=== PATIENT | female | born 1950 | race Two or more races ===

== ENCOUNTER 2018-07-04 18:25 | Inpatient (IN) | payer BC ==
[2018-07-04] MEDS ORDERED: morphine 2 MG INJ IV (19:00)
[2018-07-04] MEDS ORDERED: DOCUSATE SODIUM 100 MG CAP PO (19:00)
[2018-07-04] MEDS ORDERED: ONDANSETRON 4 MG INJ IV (19:00)
[2018-07-04] MEDS ORDERED: ACETAMINOPHEN 325 MG TAB PO (19:00)
[2018-07-04] MEDS ORDERED: GLUCOSE GEL 15 GRAM TUBE PO ×2 (19:00)
[2018-07-04] MEDS ORDERED: GLUCOSE GEL 15 GRAM TUBE BUCCAL (19:00)
[2018-07-04] MEDS ORDERED: NACL 0.9% 3 ML SYG IV (19:00)
[2018-07-04] MEDS ORDERED: HYDROCODONE/APAP (5/325) TAB PO (19:00)
[2018-07-04] MEDS ORDERED: GLUCAGON 1 MG INJ IM (19:00)
[2018-07-04] MEDS ORDERED: ZOLPIDEM 5 MG TAB PO (19:00)
[2018-07-04] MEDS ORDERED: DEXTROSE 50% 50 ML SYRINGE IV ×2 (19:00)
[2018-07-04] MEDS ORDERED: AZITHROMYCIN 500MG/NS (PMX) 250 ML IVPB (20:00)
[2018-07-04 20:05] LABS: ADD MAN DIFF? NO
[2018-07-04 20:10] LABS: WHITE BLOOD COUNT 6.7 10^3/ul (4.8-10.8)
[2018-07-04 20:10] LABS: ABNORMAL IP MESSAGE 1; BASOPHILS % 0.1 % (0.0-2.0); HEMATOCRIT 37.2 % (37.0-47.0); HEMOGLOBIN 11.5 g/dl (12.0-16.0); LYMPHOCYTES # 0.6 10^3/ul (0.8-2.9); LYMPHOCYTES % 8.5 % (15.0-51.0); MEAN CORPUSCULAR HEMOGLOBIN 25.2 pg (29.0-33.0); MEAN CORPUSCULAR HGB CONC 30.9 g/dl (32.0-37.0); MEAN CORPUSCULAR VOLUME 81.6 fl (82.0-101.0); MEAN PLATELET VOLUME 13.2 fl (7.4-10.4); MONOCYTE # 0.3 10^3/ul (0.3-0.9); MONOCYTES % 3.7 % (0.0-11.0); NEUTROPHIL # 5.9 10^3/ul (1.6-7.5); NEUTROPHILS % 87.4 % (39.0-77.0); PLATELET COUNT 135 10^3/UL (140-415); RED BLOOD COUNT 4.56 10^6/ul (4.20-5.40)
[2018-07-04 20:11] LABS: POSITIVE DIFF @See below
[2018-07-04] MEDS: CEFTRIAXONE 1 GM/50 ML (PMX) 50 ML IVPB (20:19)
[2018-07-04 20:37] LABS: ALANINE AMINOTRANSFERASE 38 IU/L (13-69); ALBUMIN 3.4 g/dl (3.3-4.9); ALBUMIN/GLOBULIN RATIO 0.87; ALKALINE PHOSPHATASE 103 IU/L (42-121); ANION GAP 6 (5-13); ASPARTATE AMINO TRANSFERASE 36 IU/L (15-46); BILIRUBIN,INDIRECT 0.4 mg/dl (0-1.1); BILIRUBIN,TOTAL 0.4 mg/dl (0.2-1.3); BLOOD UREA NITROGEN 15 mg/dl (7-20); CALCIUM 9.3 mg/dl (8.4-10.2); CARBON DIOXIDE 30 mmol/L (21-31); CHLORIDE 102 mmol/L (97-110); CREATININE 0.39 mg/dl (0.44-1.00); Estimated GFR > 60 mL/min (>60); GLUCOSE 153 mg/dl (70-220); SODIUM 138 mmol/L (135-144); TOTAL PROTEIN 7.3 g/dl (6.1-8.1)
[2018-07-04] MEDS: INSULIN ASPART [NOVOLOG] 3 ML PEN SC (21:00)
[2018-07-04] MEDS: NIFEdipine (XL) 30 MG TAB PO (21:28)
[2018-07-04] MEDS: MONTELUKAST 10 MG TAB PO (21:28)
[2018-07-04] MEDS: METHYLPREDNISOLONE 40 MG INJ IV (22:06)
[2018-07-04 22:25] LABS: BAND NEUTROPHILS #M 0.8 10^3/ul (0.0-0.6); BAND NEUTROPHILS % (M) 13 % (0-4); EOSINOPHILS % (M) 1 % (0-7); LYMPHOCYTES #M 0.6 10^3/ul (0.8-2.9); LYMPHOCYTES % (M) 10 % (15-51); METAMYELOCYTES %M 1 % (0-0); MONOCYTE #M 0.1 10^3/ul (0.3-0.9); MONOCYTES % (M) 2 % (0-11); PLATELET ESTIMATE DECREASED; SEG NEUT #M 4.9 10^3/ul (1.6-7.5); SEGMENTED NEUTROPHILS (M) % 73 % (39-77); SMUDGE%M 18 % (0-0)
[2018-07-04] MEDS: AZITHROMYCIN 500MG/NS (PMX) 250 ML IVPB (22:53)
[2018-07-05] MEDS: ACCU-CHEK XX (02:00)
[2018-07-05 06:08] LABS: ADD MAN DIFF? NO
[2018-07-05 06:11] LABS: WHITE BLOOD COUNT 6.9 10^3/ul (4.8-10.8)
[2018-07-05 06:11] LABS: ABNORMAL IP MESSAGE 1; BASOPHILS % 0.1 % (0.0-2.0); HEMATOCRIT 36.3 % (37.0-47.0); LYMPHOCYTES # 0.6 10^3/ul (0.8-2.9); LYMPHOCYTES % 8.8 % (15.0-51.0); MEAN CORPUSCULAR HGB CONC 30.3 g/dl (32.0-37.0); MEAN CORPUSCULAR VOLUME 82.5 fl (82.0-101.0); MEAN PLATELET VOLUME 13.6 fl (7.4-10.4); MONOCYTE # 0.3 10^3/ul (0.3-0.9); NEUTROPHILS % 86.5 % (39.0-77.0); PLATELET COUNT 116 10^3/UL (140-415); RED CELL DISTRIBUTION WIDTH 14.1 % (11.5-14.5)
[2018-07-05] MEDS: PANTOPRAZOLE (EC) 40 MG TAB PO (06:15)
[2018-07-05] MEDS: METHYLPREDNISOLONE 40 MG INJ IV ×3 (06:15→21:33)
[2018-07-05 06:23] LABS: POSITIVE DIFF @See below
[2018-07-05] MEDS ORDERED: LEVOFLOXACIN 750MG/D5W (PMX) 150 ML IVPB (06:30)
[2018-07-05 06:39] LABS: HEMOGLOBIN A1C 5.7 % (0-5.9)
[2018-07-05 07:09] LABS: ANION GAP 5 (5-13); BLOOD UREA NITROGEN 19 mg/dl (7-20); CALCIUM 8.8 mg/dl (8.4-10.2); CARBON DIOXIDE 31 mmol/L (21-31); CHLORIDE 103 mmol/L (97-110); CREATININE 0.41 mg/dl (0.44-1.00); Estimated GFR > 60 mL/min (>60); GLUCOSE 209 mg/dl (70-220); SODIUM 139 mmol/L (135-144)
[2018-07-05 07:40] LABS: POTASSIUM 5.6 mmol/L (3.5-5.1)
[2018-07-05] MEDS: NIFEdipine (XL) 30 MG TAB PO ×2 (08:09→21:33)
[2018-07-05] MEDS: MAGNESIUM OXIDE 400 MG TAB PO (08:09)
[2018-07-05] MEDS: TIOTROPIUM 18 MCG CAPSULE INHA DEV INH (08:12)
[2018-07-05] MEDS: INSULIN ASPART [NOVOLOG] 3 ML PEN SC ×7 (08:14→21:00)
[2018-07-05] MEDS: INSULIN GLARGINE [LANTus] (100 UNITS/ML) SYG SC (08:15)
[2018-07-05] MEDS: ENOXAPARIN 40 MG/0.4 ML SYG SC ×2 (08:15→09:00)
[2018-07-05] MEDS ORDERED: ARFORMOTEROL TARTRATE 15MCG/2 ML AMP INH (09:00)
[2018-07-05] MEDS: ASPIRIN 81 MG TAB PO (09:00)
[2018-07-05] MEDS ORDERED: NON-FORMULARY/PATIENT OWN MED (Salmeterol Xinaf-Fluticasone* (Advair*) 1 INH) INHALATION (09:00)
[2018-07-05] MEDS: BUDESONIDE (NEB) 0.5MG/2ML AMP INH ×2 (09:17→21:11)
[2018-07-05] MEDS: NA POLYST SULFON 15 GM/60 ML BTL PO ×2 (09:30→10:26)
[2018-07-05] MEDS ORDERED: metFORMIN 500 MG TAB PO (12:00)
[2018-07-05] MEDS: ALBUTEROL/IPRATROPIUM (NEB) 3 ML AMP HHN ×2 (14:27→21:11)
[2018-07-05] MEDS: CEFTRIAXONE 1 GM/50 ML (PMX) 50 ML IVPB (18:11)
[2018-07-05] MEDS: AZITHROMYCIN 500MG/NS (PMX) 250 ML IVPB (21:33)
[2018-07-05] MEDS: MONTELUKAST 10 MG TAB PO (21:33)
[2018-07-06] MEDS: ACCU-CHEK XX (01:22)
[2018-07-06] MEDS: METHYLPREDNISOLONE 40 MG INJ IV ×3 (05:19→21:15)
[2018-07-06] MEDS: PANTOPRAZOLE (EC) 40 MG TAB PO (05:19)
[2018-07-06 06:19] LABS: ADD MAN DIFF? NO
[2018-07-06 06:33] LABS: ABNORMAL IP MESSAGE 1; HEMATOCRIT 37.8 % (37.0-47.0); HEMOGLOBIN 11.3 g/dl (12.0-16.0); LYMPHOCYTES # 0.6 10^3/ul (0.8-2.9); LYMPHOCYTES % 8.9 % (15.0-51.0); MEAN CORPUSCULAR HEMOGLOBIN 24.9 pg (29.0-33.0); MEAN CORPUSCULAR HGB CONC 29.9 g/dl (32.0-37.0); MEAN CORPUSCULAR VOLUME 83.3 fl (82.0-101.0); MEAN PLATELET VOLUME 12.9 fl (7.4-10.4); MONOCYTE # 0.3 10^3/ul (0.3-0.9); MONOCYTES % 4.2 % (0.0-11.0); NEUTROPHIL # 6.1 10^3/ul (1.6-7.5); NEUTROPHILS % 86.3 % (39.0-77.0); PLATELET COUNT 127 10^3/UL (140-415); RED BLOOD COUNT 4.54 10^6/ul (4.20-5.40); RED CELL DISTRIBUTION WIDTH 14.3 % (11.5-14.5)
[2018-07-06 06:33] LABS: WHITE BLOOD COUNT 7.1 10^3/ul (4.8-10.8)
[2018-07-06 06:45] LABS: LACTIC ACID 1.4 mmol/L (0.5-2.0)
[2018-07-06 06:47] LABS: POSITIVE DIFF @See below
[2018-07-06 07:04] LABS: ANION GAP 4 (5-13); BLOOD UREA NITROGEN 22 mg/dl (7-20); CALCIUM 9.2 mg/dl (8.4-10.2); CARBON DIOXIDE 34 mmol/L (21-31); CHLORIDE 101 mmol/L (97-110); Estimated GFR > 60 mL/min (>60); GLUCOSE 190 mg/dl (70-220); PHOSPHORUS 3.9 mg/dl (2.5-4.9); POTASSIUM 4.7 mmol/L (3.5-5.1); SODIUM 139 mmol/L (135-144)
[2018-07-06] MEDS: NIFEdipine (XL) 30 MG TAB PO ×2 (08:23→20:58)
[2018-07-06] MEDS: ASPIRIN 81 MG TAB PO (08:23)
[2018-07-06] MEDS: MAGNESIUM OXIDE 400 MG TAB PO (08:23)
[2018-07-06] MEDS: ENOXAPARIN 40 MG/0.4 ML SYG SC (08:32)
[2018-07-06] MEDS: INSULIN ASPART [NOVOLOG] 3 ML PEN SC ×7 (08:33→21:07)
[2018-07-06] MEDS: INSULIN GLARGINE [LANTus] (100 UNITS/ML) SYG SC (08:33)
[2018-07-06] MEDS: BUDESONIDE (NEB) 0.5MG/2ML AMP INH ×2 (08:38→21:25)
[2018-07-06] MEDS: ALBUTEROL/IPRATROPIUM (NEB) 3 ML AMP HHN ×4 (08:38→21:21)
[2018-07-06] MEDS: CEFTRIAXONE 1 GM/50 ML (PMX) 50 ML IVPB (17:42)
[2018-07-06] MEDS: MONTELUKAST 10 MG TAB PO (20:58)
[2018-07-06] MEDS: AZITHROMYCIN 500MG/NS (PMX) 250 ML IVPB (21:15)
[2018-07-07] MEDS: ALBUTEROL/IPRATROPIUM (NEB) 3 ML AMP HHN ×6 (01:00→21:08)
[2018-07-07] MEDS: ACCU-CHEK XX (02:00)
[2018-07-07] MEDS: PANTOPRAZOLE (EC) 40 MG TAB PO (05:37)
[2018-07-07] MEDS: METHYLPREDNISOLONE 40 MG INJ IV ×3 (05:37→21:30)
[2018-07-07 07:14] LABS: ADD MAN DIFF? NO
[2018-07-07 07:20] LABS: ABNORMAL IP MESSAGE 1; BASOPHILS % 0.2 % (0.0-2.0); HEMATOCRIT 38.2 % (37.0-47.0); HEMOGLOBIN 11.4 g/dl (12.0-16.0); LYMPHOCYTES # 0.6 10^3/ul (0.8-2.9); LYMPHOCYTES % 11.6 % (15.0-51.0); MEAN CORPUSCULAR HEMOGLOBIN 25.1 pg (29.0-33.0); MEAN CORPUSCULAR HGB CONC 29.8 g/dl (32.0-37.0); MEAN CORPUSCULAR VOLUME 84.1 fl (82.0-101.0); MEAN PLATELET VOLUME 13.2 fl (7.4-10.4); MONOCYTE # 0.4 10^3/ul (0.3-0.9); MONOCYTES % 6.8 % (0.0-11.0); NEUTROPHIL # 4.4 10^3/ul (1.6-7.5); NEUTROPHILS % 80.7 % (39.0-77.0); PLATELET COUNT 112 10^3/UL (140-415); RED BLOOD COUNT 4.54 10^6/ul (4.20-5.40); RED CELL DISTRIBUTION WIDTH 14.3 % (11.5-14.5)
[2018-07-07 07:20] LABS: WHITE BLOOD COUNT 5.4 10^3/ul (4.8-10.8)
[2018-07-07 07:22] LABS: POSITIVE DIFF @See below
[2018-07-07 07:42] LABS: ANION GAP 8 (5-13); BLOOD UREA NITROGEN 25 mg/dl (7-20); CARBON DIOXIDE 31 mmol/L (21-31); CHLORIDE 100 mmol/L (97-110); CREATININE 0.44 mg/dl (0.44-1.00); Estimated GFR > 60 mL/min (>60); GLUCOSE 236 mg/dl (70-220); MAGNESIUM 1.8 mg/dl (1.7-2.5); PHOSPHORUS 3.7 mg/dl (2.5-4.9); POTASSIUM 4.7 mmol/L (3.5-5.1); SODIUM 139 mmol/L (135-144)
[2018-07-07] MEDS: MAGNESIUM OXIDE 400 MG TAB PO (08:20)
[2018-07-07] MEDS: ASPIRIN 81 MG TAB PO (08:20)
[2018-07-07] MEDS: INSULIN ASPART [NOVOLOG] 3 ML PEN SC ×7 (08:26→21:00)
[2018-07-07] MEDS: ENOXAPARIN 40 MG/0.4 ML SYG SC (08:27)
[2018-07-07] MEDS: INSULIN GLARGINE [LANTus] (100 UNITS/ML) SYG SC (08:27)
[2018-07-07] MEDS: NIFEdipine (XL) 30 MG TAB PO ×2 (08:28→21:35)
[2018-07-07] MEDS: BUDESONIDE (NEB) 0.5MG/2ML AMP INH ×2 (08:38→21:08)
[2018-07-07 12:57] LABS: AADO2 Arterial 30.8 mmHg (7.0-24.0); Allen Test ACCEPTAB; Arterial Base Excess 5.4 mmol/L (-3.0-3); Arterial Blood Gas Oxygen Sat 92.1 mmHG (95.0-98.0); Arterial COHb 0.2 % (0.0-3.0); Arterial Fraction of Oxyhgb 91.8 % (93.0-99.0); Arterial HCO3 30.9 mmol/L (22.0-26.0); Arterial MetHb 0.1 % (0.0-1.5); Arterial pCO2 48.6 mmhg (35-45); MODE ROOM AIR; Site Right Radial
[2018-07-07] MEDS: CEFTRIAXONE 1 GM/50 ML (PMX) 50 ML IVPB (18:37)
[2018-07-07] MEDS: MONTELUKAST 10 MG TAB PO (21:30)
[2018-07-07] MEDS: AZITHROMYCIN 500MG/NS (PMX) 250 ML IVPB (21:42)
[2018-07-08] MEDS: ALBUTEROL/IPRATROPIUM (NEB) 3 ML AMP HHN ×5 (01:00→20:45)
[2018-07-08] MEDS: ACCU-CHEK XX (02:00)
[2018-07-08] MEDS: PANTOPRAZOLE (EC) 40 MG TAB PO (05:04)
[2018-07-08] MEDS: METHYLPREDNISOLONE 40 MG INJ IV ×2 (05:04→21:32)
[2018-07-08 05:54] LABS: ABNORMAL IP MESSAGE 1; ADD MAN DIFF? NO; HEMOGLOBIN 11.5 g/dl (12.0-16.0); LYMPHOCYTES # 0.6 10^3/ul (0.8-2.9); LYMPHOCYTES % 11.6 % (15.0-51.0); MEAN CORPUSCULAR HEMOGLOBIN 25.1 pg (29.0-33.0); MEAN CORPUSCULAR HGB CONC 30.3 g/dl (32.0-37.0); MEAN PLATELET VOLUME 12.3 fl (7.4-10.4); MONOCYTE # 0.3 10^3/ul (0.3-0.9); NEUTROPHIL # 4.1 10^3/ul (1.6-7.5); NEUTROPHILS % 81.6 % (39.0-77.0); PLATELET COUNT 106 10^3/UL (140-415); RED BLOOD COUNT 4.58 10^6/ul (4.20-5.40); RED CELL DISTRIBUTION WIDTH 14.1 % (11.5-14.5)
[2018-07-08 06:15] LABS: POSITIVE DIFF @See below
[2018-07-08 06:35] LABS: ALBUMIN 3.1 g/dl (3.3-4.9); ANION GAP 7 (5-13); BLOOD UREA NITROGEN 23 mg/dl (7-20); CALCIUM 8.9 mg/dl (8.4-10.2); CARBON DIOXIDE 32 mmol/L (21-31); CHLORIDE 101 mmol/L (97-110); GLUCOSE 178 mg/dl (70-220); PHOSPHORUS 3.6 mg/dl (2.5-4.9); POTASSIUM 4.9 mmol/L (3.5-5.1); SODIUM 140 mmol/L (135-144)
[2018-07-08] MEDS: ASPIRIN 81 MG TAB PO (08:32)
[2018-07-08] MEDS: NIFEdipine (XL) 30 MG TAB PO ×2 (08:33→21:35)
[2018-07-08] MEDS: MAGNESIUM OXIDE 400 MG TAB PO (08:33)
[2018-07-08] MEDS: INSULIN ASPART [NOVOLOG] 3 ML PEN SC ×7 (08:37→21:00)
[2018-07-08] MEDS: INSULIN GLARGINE [LANTus] (100 UNITS/ML) SYG SC (08:38)
[2018-07-08] MEDS: ENOXAPARIN 40 MG/0.4 ML SYG SC (08:39)
[2018-07-08] MEDS: BUDESONIDE (NEB) 0.5MG/2ML AMP INH ×2 (08:58→20:45)
[2018-07-08 12:59] LABS: ALANINE AMINOTRANSFERASE 42 IU/L (13-69); ALBUMIN 3.5 g/dl (3.3-4.9); ALKALINE PHOSPHATASE 81 IU/L (42-121); ASPARTATE AMINO TRANSFERASE 33 IU/L (15-46); BILIRUBIN,INDIRECT 0.4 mg/dl (0-1.1); BILIRUBIN,TOTAL 0.4 mg/dl (0.2-1.3); TOTAL PROTEIN 6.8 g/dl (6.1-8.1)
[2018-07-08] MEDS: CEFTRIAXONE 1 GM/50 ML (PMX) 50 ML IVPB (17:36)
[2018-07-08] MEDS: MONTELUKAST 10 MG TAB PO (21:33)
[2018-07-08] MEDS: AZITHROMYCIN 500MG/NS (PMX) 250 ML IVPB (23:32)
[2018-07-09] MEDS: ALBUTEROL/IPRATROPIUM (NEB) 3 ML AMP HHN ×6 (01:00→19:23)
[2018-07-09] MEDS: ACCU-CHEK XX (02:00)
[2018-07-09] MEDS: PANTOPRAZOLE (EC) 40 MG TAB PO (05:47)
[2018-07-09] MEDS: BUDESONIDE (NEB) 0.5MG/2ML AMP INH ×2 (08:42→19:22)
[2018-07-09] MEDS: INSULIN ASPART [NOVOLOG] 3 ML PEN SC ×7 (08:53→20:54)
[2018-07-09] MEDS: INSULIN GLARGINE [LANTus] (100 UNITS/ML) SYG SC (08:54)
[2018-07-09] MEDS: MAGNESIUM OXIDE 400 MG TAB PO (09:10)
[2018-07-09] MEDS: ASPIRIN 81 MG TAB PO (09:11)
[2018-07-09] MEDS: ENOXAPARIN 40 MG/0.4 ML SYG SC (09:12)
[2018-07-09] MEDS: NIFEdipine (XL) 30 MG TAB PO ×2 (09:13→20:46)
[2018-07-09] MEDS: METHYLPREDNISOLONE 40 MG INJ IV ×2 (09:45→20:46)
[2018-07-09] MEDS ORDERED: morphine LIQ (10 MG/5 ML) CUP PO (15:30)
[2018-07-09] MEDS: CEFTRIAXONE 1 GM/50 ML (PMX) 50 ML IVPB (18:30)
[2018-07-09] MEDS: MONTELUKAST 10 MG TAB PO (20:46)
[2018-07-09] MEDS: AZITHROMYCIN 500MG/NS (PMX) 250 ML IVPB (23:25)
[2018-07-10] MEDS: ALBUTEROL/IPRATROPIUM (NEB) 3 ML AMP HHN ×6 (00:32→21:29)
[2018-07-10] MEDS: ACCU-CHEK XX (01:56)
[2018-07-10] MEDS: PANTOPRAZOLE (EC) 40 MG TAB PO (05:56)
[2018-07-10] MEDS: MAGNESIUM OXIDE 400 MG TAB PO (08:24)
[2018-07-10] MEDS: NIFEdipine (XL) 30 MG TAB PO ×2 (08:24→20:38)
[2018-07-10] MEDS: predniSONE 20 MG TAB PO (08:24)
[2018-07-10] MEDS: INSULIN ASPART [NOVOLOG] 3 ML PEN SC ×7 (08:26→20:38)
[2018-07-10] MEDS: INSULIN GLARGINE [LANTus] (100 UNITS/ML) SYG SC (08:27)
[2018-07-10] MEDS: ENOXAPARIN 40 MG/0.4 ML SYG SC (08:28)
[2018-07-10] MEDS: ASPIRIN 81 MG TAB PO (08:31)
[2018-07-10] MEDS: BUDESONIDE (NEB) 0.5MG/2ML AMP INH ×2 (09:10→21:29)
[2018-07-10] MEDS: POLYETHYLENE GLYCOL 17 GM PACKET PO (13:43)
[2018-07-10] MEDS: CEFTRIAXONE 1 GM/50 ML (PMX) 50 ML IVPB (18:26)
[2018-07-10] MEDS: MONTELUKAST 10 MG TAB PO (20:38)
[2018-07-11] MEDS: ALBUTEROL/IPRATROPIUM (NEB) 3 ML AMP HHN ×6 (01:02→20:48)
[2018-07-11] MEDS: ACCU-CHEK XX (01:57)
[2018-07-11] MEDS: PANTOPRAZOLE (EC) 40 MG TAB PO (05:23)
[2018-07-11] MEDS: INSULIN ASPART [NOVOLOG] 3 ML PEN SC ×7 (08:00→21:00)
[2018-07-11] MEDS: BUDESONIDE (NEB) 0.5MG/2ML AMP INH ×2 (08:07→20:48)
[2018-07-11] MEDS: ASPIRIN 81 MG TAB PO (08:36)
[2018-07-11] MEDS: NIFEdipine (XL) 30 MG TAB PO ×2 (08:38→21:22)
[2018-07-11] MEDS: POLYETHYLENE GLYCOL 17 GM PACKET PO (08:38)
[2018-07-11] MEDS: MAGNESIUM OXIDE 400 MG TAB PO (08:38)
[2018-07-11] MEDS: predniSONE 20 MG TAB PO (08:38)
[2018-07-11] MEDS: INSULIN GLARGINE [LANTus] (100 UNITS/ML) SYG SC (08:42)
[2018-07-11] MEDS: ENOXAPARIN 40 MG/0.4 ML SYG SC (08:42)
[2018-07-11] MEDS: CEFTRIAXONE 1 GM/50 ML (PMX) 50 ML IVPB (18:40)
[2018-07-11] MEDS: MONTELUKAST 10 MG TAB PO (21:22)
[2018-07-12] MEDS: ALBUTEROL/IPRATROPIUM (NEB) 3 ML AMP HHN ×6 (01:00→20:55)
[2018-07-12] MEDS: ACCU-CHEK XX (02:00)
[2018-07-12] MEDS: PANTOPRAZOLE (EC) 40 MG TAB PO (05:47)
[2018-07-12] MEDS: DOCUSATE SODIUM 100 MG CAP PO (05:47)
[2018-07-12] MEDS: INSULIN ASPART [NOVOLOG] 3 ML PEN SC ×7 (08:00→20:48)
[2018-07-12] MEDS: INSULIN GLARGINE [LANTus] (100 UNITS/ML) SYG SC (08:11)
[2018-07-12] MEDS: BUDESONIDE (NEB) 0.5MG/2ML AMP INH ×2 (08:42→20:55)
[2018-07-12] MEDS: ASPIRIN 81 MG TAB PO (09:00)
[2018-07-12] MEDS: predniSONE 20 MG TAB PO (09:03)
[2018-07-12] MEDS: MAGNESIUM OXIDE 400 MG TAB PO (09:03)
[2018-07-12] MEDS: NIFEdipine (XL) 30 MG TAB PO ×2 (09:07→20:45)
[2018-07-12] MEDS: POLYETHYLENE GLYCOL 17 GM PACKET PO (09:08)
[2018-07-12] MEDS: ENOXAPARIN 40 MG/0.4 ML SYG SC (09:57)
[2018-07-12] MEDS: CEFTRIAXONE 1 GM/50 ML (PMX) 50 ML IVPB (18:26)
[2018-07-12] MEDS: MONTELUKAST 10 MG TAB PO (20:44)
[2018-07-12] MEDS: traZODone 50 MG TAB PO (21:00)
[2018-07-13] MEDS: ALBUTEROL/IPRATROPIUM (NEB) 3 ML AMP HHN ×4 (01:01→22:18)
[2018-07-13] MEDS: ACCU-CHEK XX ×2 (02:28→20:46)
[2018-07-13] MEDS: PANTOPRAZOLE (EC) 40 MG TAB PO (05:51)
[2018-07-13] MEDS: INSULIN ASPART [NOVOLOG] 3 ML PEN SC ×7 (08:00→20:46)
[2018-07-13] MEDS: BUDESONIDE (NEB) 0.5MG/2ML AMP INH ×2 (08:00→22:13)
[2018-07-13] MEDS: predniSONE 20 MG TAB PO (08:14)
[2018-07-13] MEDS: ASPIRIN 81 MG TAB PO (08:15)
[2018-07-13] MEDS: NIFEdipine (XL) 30 MG TAB PO ×2 (08:15→20:45)
[2018-07-13] MEDS: MAGNESIUM OXIDE 400 MG TAB PO (08:15)
[2018-07-13] MEDS: POLYETHYLENE GLYCOL 17 GM PACKET PO (08:15)
[2018-07-13] MEDS: INSULIN GLARGINE [LANTus] (100 UNITS/ML) SYG SC (08:21)
[2018-07-13] MEDS: ENOXAPARIN 40 MG/0.4 ML SYG SC (08:21)
[2018-07-13] MEDS ORDERED: predniSONE 20 MG TAB PO (09:00)
[2018-07-13] MEDS: traZODone 50 MG TAB PO (20:44)
[2018-07-13] MEDS: MONTELUKAST 10 MG TAB PO (20:44)
[2018-07-14] MEDS: PANTOPRAZOLE (EC) 40 MG TAB PO (05:29)
[2018-07-14] MEDS: ALBUTEROL/IPRATROPIUM (NEB) 3 ML AMP HHN (06:00)
[2018-07-14 06:14] LABS: ADD MAN DIFF? NO
[2018-07-14 06:26] LABS: ABNORMAL IP MESSAGE 1; BASOPHILS % 0.1 % (0.0-2.0); EOSINOPHILS # 0.1 10^3/ul (0.0-0.5); EOSINOPHILS % 0.7 % (0.0-7.0); HEMOGLOBIN 11.9 g/dl (12.0-16.0); LYMPHOCYTES # 1.8 10^3/ul (0.8-2.9); LYMPHOCYTES % 23.4 % (15.0-51.0); MEAN CORPUSCULAR HEMOGLOBIN 25.4 pg (29.0-33.0); MEAN CORPUSCULAR HGB CONC 31.3 g/dl (32.0-37.0); MEAN CORPUSCULAR VOLUME 81.2 fl (82.0-101.0); MEAN PLATELET VOLUME 12.8 fl (7.4-10.4); MONOCYTE # 0.8 10^3/ul (0.3-0.9); MONOCYTES % 11.2 % (0.0-11.0); NEUTROPHIL # 4.8 10^3/ul (1.6-7.5); NEUTROPHILS % 63.7 % (39.0-77.0); PLATELET COUNT 91 10^3/UL (140-415); RED BLOOD COUNT 4.68 10^6/ul (4.20-5.40); RED CELL DISTRIBUTION WIDTH 13.8 % (11.5-14.5)
[2018-07-14 06:26] LABS: WHITE BLOOD COUNT 7.5 10^3/ul (4.8-10.8)
[2018-07-14 06:28] LABS: POSITIVE DIFF @See below
[2018-07-14 06:55] LABS: ALBUMIN 3.1 g/dl (3.3-4.9); ANION GAP 6 (5-13); BLOOD UREA NITROGEN 32 mg/dl (7-20); CALCIUM 9.2 mg/dl (8.4-10.2); CARBON DIOXIDE 33 mmol/L (21-31); CHLORIDE 97 mmol/L (97-110); CREATININE 0.56 mg/dl (0.44-1.00); GLUCOSE 109 mg/dl (70-220); MAGNESIUM 1.9 mg/dl (1.7-2.5); PHOSPHORUS 3.7 mg/dl (2.5-4.9); POTASSIUM 5.2 mmol/L (3.5-5.1); SODIUM 136 mmol/L (135-144)
[2018-07-14] MEDS: BUDESONIDE (NEB) 0.5MG/2ML AMP INH (08:14)
[2018-07-14] MEDS: MAGNESIUM OXIDE 400 MG TAB PO (08:54)
[2018-07-14] MEDS: POLYETHYLENE GLYCOL 17 GM PACKET PO (08:54)
[2018-07-14] MEDS: ASPIRIN 81 MG TAB PO (08:54)
[2018-07-14] MEDS: predniSONE 20 MG TAB PO (08:55)
[2018-07-14] MEDS: NIFEdipine (XL) 30 MG TAB PO (08:55)
[2018-07-14] MEDS: INSULIN ASPART [NOVOLOG] 3 ML PEN SC ×4 (08:58→12:35)
[2018-07-14] MEDS: ENOXAPARIN 40 MG/0.4 ML SYG SC (08:59)
[2018-07-14] MEDS: INSULIN GLARGINE [LANTus] (100 UNITS/ML) SYG SC (09:02)
[2018-07-14] MEDS: FLUTICASONE/VILANTEROL 100-25 INH (11:13)
[2018-07-14] MEDS: TIOTROPIUM 18 MCG CAPSULE INHA DEV INH (11:13)
[2018-07-15] MEDS ORDERED: predniSONE 20 MG TAB PO (09:00)
== END 2018-07-14 17:15 | disposition home or self-care (01) | DRG 190 ==
LOC: 2NE 18:25
DX: J47.1 Bronchiectasis with (acute) exacerbation (principal); J96.01 Acute respiratory failure with hypoxia; I50.32 Chronic diastolic (congestive) heart failure; I11.0 Hypertensive heart disease with heart failure; E11.9 Type 2 diabetes mellitus without complications; Z86.19 Personal history of other infectious and parasitic diseases; G47.00 Insomnia, unspecified
CPT/HCPCS: 36600; 71250; 80048; 80053; 80069; 80076; 82803; 82962; 83036; 83605; 83735; 84100; 85025; 87070; 87081; 93306; 94640; 94664; 94667; 94668; 97161

== ENCOUNTER 2019-01-14 17:12 | Inpatient (IN) | payer BC ==
[2019-01-14] MEDS ORDERED: GLUCOSE GEL 15 GRAM TUBE BUCCAL (18:30)
[2019-01-14] MEDS ORDERED: LORAZEPAM 2 MG INJ IV (18:30)
[2019-01-14] MEDS ORDERED: hydrALAzine 20 MG INJ IV (18:30)
[2019-01-14] MEDS ORDERED: DOCUSATE SODIUM 100 MG CAP PO (18:30)
[2019-01-14] MEDS ORDERED: DEXTROSE 50% 50 ML SYRINGE IV ×2 (18:30)
[2019-01-14] MEDS ORDERED: GLUCOSE GEL 15 GRAM TUBE PO ×2 (18:30)
[2019-01-14] MEDS ORDERED: morphine 2 MG INJ IV (18:30)
[2019-01-14] MEDS ORDERED: HYDROCODONE/APAP (5/325) TAB PO (18:30)
[2019-01-14] MEDS ORDERED: ACETAMINOPHEN 325 MG TAB PO (18:30)
[2019-01-14] MEDS ORDERED: NITROGLYCERIN (SL) 0.4 MG TAB SL (18:30)
[2019-01-14] MEDS ORDERED: ONDANSETRON 4 MG INJ IV (18:30)
[2019-01-14] MEDS ORDERED: GLUCAGON 1 MG INJ IM (18:30)
[2019-01-14] MEDS: METHYLPREDNISOLONE 125 MG INJ IV (18:55)
[2019-01-14] MEDS: SOD CHLORIDE 0.45% 1,000 ML IV (18:55)
[2019-01-14 19:51] LABS: HEMOGLOBIN A1C 6.1 % (0-5.9)
[2019-01-14 20:13] LABS: TROPONIN-I < 0.012 ng/ml (0.000-0.120)
[2019-01-14 20:18] LABS: FREE T4 (FREE THYROXINE) 0.54 ng/dl (0.78-2.44)
[2019-01-14] MEDS: INSULIN ASPART [NOVOLOG] 3 ML PEN SC (21:00)
[2019-01-14] MEDS: LEVOFLOXACIN 750MG/D5W (PMX) 150 ML IVPB (21:00)
[2019-01-14] MEDS: ALBUTEROL/IPRATROPIUM (NEB) 3 ML AMP HHN ×2 (21:00→23:17)
[2019-01-14] MEDS: HEPARIN 5,000 UNIT/1 ML VIAL SC (21:28)
[2019-01-15] MEDS: METHYLPREDNISOLONE 125 MG INJ IV ×5 (00:15→23:26)
[2019-01-15] MEDS: INSULIN ASPART [NOVOLOG] 3 ML PEN SC ×6 (00:57→21:56)
[2019-01-15] MEDS: ACCU-CHEK XX (02:00)
[2019-01-15] MEDS: ALBUTEROL/IPRATROPIUM (NEB) 3 ML AMP HHN ×5 (05:28→20:11)
[2019-01-15 06:09] LABS: ADD MAN DIFF? NO
[2019-01-15 06:13] LABS: ABNORMAL IP MESSAGE 1; HEMATOCRIT 37.5 % (37.0-47.0); HEMOGLOBIN 11.4 g/dl (12.0-16.0); LYMPHOCYTES # 0.6 10^3/ul (0.8-2.9); LYMPHOCYTES % 9.3 % (15.0-51.0); MEAN CORPUSCULAR HEMOGLOBIN 24.7 pg (29.0-33.0); MEAN CORPUSCULAR HGB CONC 30.4 g/dl (32.0-37.0); MEAN CORPUSCULAR VOLUME 81.3 fl (82.0-101.0); MEAN PLATELET VOLUME 12.9 fl (7.4-10.4); MONOCYTE # 0.1 10^3/ul (0.3-0.9); MONOCYTES % 2.2 % (0.0-11.0); NEUTROPHIL # 5.7 10^3/ul (1.6-7.5); NEUTROPHILS % 87.7 % (39.0-77.0); PLATELET COUNT 103 10^3/UL (140-415); RED BLOOD COUNT 4.61 10^6/ul (4.20-5.40); RED CELL DISTRIBUTION WIDTH 15.4 % (11.5-14.5)
[2019-01-15 06:13] LABS: WHITE BLOOD COUNT 6.5 10^3/ul (4.8-10.8)
[2019-01-15 06:21] LABS: POSITIVE DIFF @See below
[2019-01-15 07:09] LABS: Estimated GFR > 60 mL/min (>60)
[2019-01-15 07:27] LABS: ANION GAP 7 (5-13); BLOOD UREA NITROGEN 29 mg/dl (7-20); CALCIUM 9.7 mg/dl (8.4-10.2); CARBON DIOXIDE 29 mmol/L (21-31); CHLORIDE 105 mmol/L (97-110); CHOLESTEROL 170 mg/dl (100-200); CREATININE 0.69 mg/dl (0.44-1.00); GLUCOSE 126 mg/dl (70-220); HDL CHOLESTEROL 55 mg/dl (33-92); LDL CHOLESTEROL,CALCULATED 103 mg/dl; MAGNESIUM 1.9 mg/dl (1.7-2.5); PHOSPHORUS 3.6 mg/dl (2.5-4.9); POTASSIUM 5.2 mmol/L (3.5-5.1); SODIUM 141 mmol/L (135-144); TRIGLYCERIDES 60 mg/dl (0-149)
[2019-01-15] MEDS: SOD CHLORIDE 0.45% 1,000 ML IV (08:02)
[2019-01-15] MEDS: HEPARIN 5,000 UNIT/1 ML VIAL SC (08:14)
[2019-01-15] MEDS: SODIUM POLYSTYRENE 15 GM KIT (POWDER + SORBITOL) PO (12:28)
[2019-01-15] MEDS: MONTELUKAST 10 MG TAB PO (21:45)
[2019-01-15] MEDS: GABAPENTIN 300 MG CAP PO (21:46)
[2019-01-15] MEDS: GUAIFENESIN LA 600 MG TABSR PO (21:46)
[2019-01-16] MEDS: ALBUTEROL/IPRATROPIUM (NEB) 3 ML AMP HHN ×6 (01:36→20:27)
[2019-01-16] MEDS: ACCU-CHEK XX (02:00)
[2019-01-16] MEDS: INSULIN ASPART [NOVOLOG] 3 ML PEN SC ×4 (02:02→12:50)
[2019-01-16 05:42] LABS: ADD MAN DIFF? NO
[2019-01-16 05:50] LABS: ABNORMAL IP MESSAGE 1; BASOPHILS % 0.3 % (0.0-2.0); HEMOGLOBIN 11.6 g/dl (12.0-16.0); LYMPHOCYTES # 0.4 10^3/ul (0.8-2.9); LYMPHOCYTES % 11.3 % (15.0-51.0); MEAN CORPUSCULAR HEMOGLOBIN 24.5 pg (29.0-33.0); MEAN CORPUSCULAR HGB CONC 29.7 g/dl (32.0-37.0); MEAN CORPUSCULAR VOLUME 82.3 fl (82.0-101.0); MEAN PLATELET VOLUME 13.4 fl (7.4-10.4); MONOCYTE # 0.1 10^3/ul (0.3-0.9); MONOCYTES % 3.2 % (0.0-11.0); NEUTROPHIL # 2.9 10^3/ul (1.6-7.5); NEUTROPHILS % 84.6 % (39.0-77.0); PLATELET COUNT 100 10^3/UL (140-415); RED BLOOD COUNT 4.74 10^6/ul (4.20-5.40); RED CELL DISTRIBUTION WIDTH 15.1 % (11.5-14.5)
[2019-01-16 05:50] LABS: WHITE BLOOD COUNT 3.4 10^3/ul (4.8-10.8)
[2019-01-16 05:58] LABS: POSITIVE DIFF @See below
[2019-01-16] MEDS: METHYLPREDNISOLONE 125 MG INJ IV ×3 (06:16→17:41)
[2019-01-16 06:21] LABS: ANION GAP 9 (5-13); BLOOD UREA NITROGEN 26 mg/dl (7-20); CALCIUM 9.5 mg/dl (8.4-10.2); CARBON DIOXIDE 29 mmol/L (21-31); CHLORIDE 103 mmol/L (97-110); CREATININE 0.59 mg/dl (0.44-1.00); Estimated GFR > 60 mL/min (>60); GLUCOSE 144 mg/dl (70-220); POTASSIUM 4.3 mmol/L (3.5-5.1); SODIUM 141 mmol/L (135-144)
[2019-01-16] MEDS: LEVOTHYROXINE 25 MCG TAB PO (08:51)
[2019-01-16] MEDS: GABAPENTIN 300 MG CAP PO ×2 (08:51→20:48)
[2019-01-16] MEDS: ASPIRIN 81 MG TAB PO (08:51)
[2019-01-16] MEDS: MAGNESIUM OXIDE 400 MG TAB PO (09:31)
[2019-01-16] MEDS: GUAIFENESIN LA 600 MG TABSR PO ×2 (09:31→20:48)
[2019-01-16] MEDS ORDERED: INSULIN ASPART [NOVOLOG] 3 ML PEN SC (17:30)
[2019-01-16] MEDS: Insulin NOVOLOG SS MILD Algorithm (SS with meals and bedtime) SC ×2 (17:38→20:50)
[2019-01-16] MEDS: MONTELUKAST 10 MG TAB PO (20:48)
[2019-01-16] MEDS: MAGNESIUM HYDROXIDE 30ML CUP PO (20:48)
[2019-01-17] MEDS: METHYLPREDNISOLONE 125 MG INJ IV ×4 (00:47→17:36)
[2019-01-17] MEDS: ALBUTEROL/IPRATROPIUM (NEB) 3 ML AMP HHN ×6 (01:04→21:29)
[2019-01-17] MEDS: INSULIN ASPART [NOVOLOG] 3 ML PEN SC (02:02)
[2019-01-17] MEDS: ACCU-CHEK XX ×2 (02:03→04:52)
[2019-01-17 06:00] LABS: ADD MAN DIFF? NO
[2019-01-17 06:22] LABS: WHITE BLOOD COUNT 2.9 10^3/ul (4.8-10.8)
[2019-01-17 06:22] LABS: ABNORMAL IP MESSAGE 1; HEMATOCRIT 37.7 % (37.0-47.0); HEMOGLOBIN 11.6 g/dl (12.0-16.0); LYMPHOCYTES # 0.4 10^3/ul (0.8-2.9); LYMPHOCYTES % 14.8 % (15.0-51.0); MEAN CORPUSCULAR HEMOGLOBIN 24.9 pg (29.0-33.0); MEAN CORPUSCULAR HGB CONC 30.8 g/dl (32.0-37.0); MEAN CORPUSCULAR VOLUME 80.9 fl (82.0-101.0); MEAN PLATELET VOLUME 13.1 fl (7.4-10.4); MONOCYTE # 0.1 10^3/ul (0.3-0.9); MONOCYTES % 4.8 % (0.0-11.0); NEUTROPHIL # 2.3 10^3/ul (1.6-7.5); PLATELET COUNT 86 10^3/UL (140-415); RED BLOOD COUNT 4.66 10^6/ul (4.20-5.40); RED CELL DISTRIBUTION WIDTH 15.1 % (11.5-14.5)
[2019-01-17 06:27] LABS: POSITIVE DIFF @See below
[2019-01-17] MEDS: LEVOTHYROXINE 25 MCG TAB PO (06:31)
[2019-01-17 06:43] LABS: ANION GAP 4 (5-13); BLOOD UREA NITROGEN 31 mg/dl (7-20); CARBON DIOXIDE 34 mmol/L (21-31); CHLORIDE 101 mmol/L (97-110); CREATININE 0.58 mg/dl (0.44-1.00); Estimated GFR > 60 mL/min (>60); GLUCOSE 185 mg/dl (70-220); SODIUM 139 mmol/L (135-144)
[2019-01-17 06:44] LABS: POTASSIUM 4.2 mmol/L (3.5-5.1)
[2019-01-17] MEDS: Insulin NOVOLOG SS MILD Algorithm (SS with meals and bedtime) SC ×4 (09:17→20:49)
[2019-01-17] MEDS: GUAIFENESIN LA 600 MG TABSR PO ×2 (09:17→20:47)
[2019-01-17] MEDS: MAGNESIUM OXIDE 400 MG TAB PO (09:18)
[2019-01-17] MEDS: ASPIRIN 81 MG TAB PO (09:18)
[2019-01-17] MEDS: GABAPENTIN 300 MG CAP PO ×2 (09:18→20:47)
[2019-01-17] MEDS: NACL 0.9% 3 ML SYG IV (18:21)
[2019-01-17] MEDS: MONTELUKAST 10 MG TAB PO (20:47)
[2019-01-17] MEDS: INSULIN GLARGINE [LANTus] (100 UNITS/ML) SYG SC (20:49)
[2019-01-18] MEDS: METHYLPREDNISOLONE 125 MG INJ IV ×3 (00:17→12:46)
[2019-01-18] MEDS: ALBUTEROL/IPRATROPIUM (NEB) 3 ML AMP HHN ×6 (00:56→19:59)
[2019-01-18] MEDS: ACCU-CHEK XX (01:41)
[2019-01-18 06:09] LABS: ADD MAN DIFF? NO
[2019-01-18 06:12] LABS: WHITE BLOOD COUNT 2.9 10^3/ul (4.8-10.8)
[2019-01-18 06:12] LABS: ABNORMAL IP MESSAGE 1; HEMATOCRIT 39.5 % (37.0-47.0); HEMOGLOBIN 11.8 g/dl (12.0-16.0); LYMPHOCYTES # 0.3 10^3/ul (0.8-2.9); LYMPHOCYTES % 11.3 % (15.0-51.0); MEAN CORPUSCULAR HEMOGLOBIN 24.4 pg (29.0-33.0); MEAN CORPUSCULAR HGB CONC 29.9 g/dl (32.0-37.0); MEAN CORPUSCULAR VOLUME 81.6 fl (82.0-101.0); MONOCYTE # 0.1 10^3/ul (0.3-0.9); MONOCYTES % 4.5 % (0.0-11.0); NEUTROPHIL # 2.4 10^3/ul (1.6-7.5); NEUTROPHILS % 82.8 % (39.0-77.0); PLATELET COUNT 80 10^3/UL (140-415); RED BLOOD COUNT 4.84 10^6/ul (4.20-5.40); RED CELL DISTRIBUTION WIDTH 15.1 % (11.5-14.5)
[2019-01-18] MEDS: LEVOTHYROXINE 25 MCG TAB PO (06:15)
[2019-01-18 06:22] LABS: POSITIVE DIFF @See below
[2019-01-18 06:44] LABS: MAGNESIUM 2.3 mg/dl (1.7-2.5)
[2019-01-18 06:44] LABS: PHOSPHORUS 3.2 mg/dl (2.5-4.9)
[2019-01-18 06:53] LABS: ANION GAP 4 (5-13); BLOOD UREA NITROGEN 31 mg/dl (7-20); CALCIUM 8.8 mg/dl (8.4-10.2); CARBON DIOXIDE 35 mmol/L (21-31); CHLORIDE 99 mmol/L (97-110); CREATININE 0.53 mg/dl (0.44-1.00); Estimated GFR > 60 mL/min (>60); GLUCOSE 186 mg/dl (70-220); SODIUM 138 mmol/L (135-144)
[2019-01-18 07:16] LABS: POTASSIUM 5.1 mmol/L (3.5-5.1)
[2019-01-18] MEDS: ASPIRIN 81 MG TAB PO (08:08)
[2019-01-18] MEDS: MAGNESIUM OXIDE 400 MG TAB PO (08:08)
[2019-01-18] MEDS: GUAIFENESIN LA 600 MG TABSR PO ×2 (08:08→20:52)
[2019-01-18] MEDS: GABAPENTIN 300 MG CAP PO ×2 (08:08→20:52)
[2019-01-18] MEDS: Insulin NOVOLOG SS MILD Algorithm (SS with meals and bedtime) SC ×4 (08:10→20:58)
[2019-01-18] MEDS: MONTELUKAST 10 MG TAB PO (20:52)
[2019-01-18] MEDS: INSULIN GLARGINE [LANTus] (100 UNITS/ML) SYG SC (20:59)
[2019-01-19] MEDS: ALBUTEROL/IPRATROPIUM (NEB) 3 ML AMP HHN ×6 (00:56→20:34)
[2019-01-19] MEDS: ACCU-CHEK XX (02:00)
[2019-01-19 06:05] LABS: ADD MAN DIFF? NO
[2019-01-19] MEDS: LEVOTHYROXINE 25 MCG TAB PO (06:12)
[2019-01-19 06:19] LABS: WHITE BLOOD COUNT 4.7 10^3/ul (4.8-10.8)
[2019-01-19 06:19] LABS: ABNORMAL IP MESSAGE 1; HEMATOCRIT 37.7 % (37.0-47.0); HEMOGLOBIN 11.5 g/dl (12.0-16.0); LYMPHOCYTES # 0.7 10^3/ul (0.8-2.9); MEAN CORPUSCULAR HEMOGLOBIN 24.5 pg (29.0-33.0); MEAN CORPUSCULAR HGB CONC 30.5 g/dl (32.0-37.0); MEAN CORPUSCULAR VOLUME 80.2 fl (82.0-101.0); MONOCYTE # 0.5 10^3/ul (0.3-0.9); MONOCYTES % 9.7 % (0.0-11.0); NEUTROPHIL # 3.5 10^3/ul (1.6-7.5); PLATELET COUNT 87 10^3/UL (140-415); RED CELL DISTRIBUTION WIDTH 14.9 % (11.5-14.5)
[2019-01-19 06:27] LABS: POSITIVE DIFF @See below
[2019-01-19 06:34] LABS: MAGNESIUM 2.3 mg/dl (1.7-2.5)
[2019-01-19 06:34] LABS: PHOSPHORUS 3.3 mg/dl (2.5-4.9)
[2019-01-19 06:53] LABS: ANION GAP 7 (5-13); BLOOD UREA NITROGEN 32 mg/dl (7-20); CALCIUM 9.1 mg/dl (8.4-10.2); CARBON DIOXIDE 35 mmol/L (21-31); CHLORIDE 97 mmol/L (97-110); CREATININE 0.66 mg/dl (0.44-1.00); Estimated GFR > 60 mL/min (>60); GLUCOSE 154 mg/dl (70-220); POTASSIUM 4.8 mmol/L (3.5-5.1); SODIUM 139 mmol/L (135-144)
[2019-01-19] MEDS: Insulin NOVOLOG SS MILD Algorithm (SS with meals and bedtime) SC ×4 (08:15→21:00)
[2019-01-19] MEDS: GUAIFENESIN LA 600 MG TABSR PO ×2 (08:15→20:28)
[2019-01-19] MEDS: MAGNESIUM OXIDE 400 MG TAB PO (08:15)
[2019-01-19] MEDS: ASPIRIN 81 MG TAB PO (08:15)
[2019-01-19] MEDS: GABAPENTIN 300 MG CAP PO ×2 (08:15→20:28)
[2019-01-19] MEDS: predniSONE 10 MG TAB PO (08:22)
[2019-01-19] MEDS ORDERED: predniSONE 20 MG TAB PO (09:00)
[2019-01-19] MEDS: MONTELUKAST 10 MG TAB PO (20:28)
[2019-01-19] MEDS: INSULIN GLARGINE [LANTus] (100 UNITS/ML) SYG SC (20:31)
[2019-01-20] MEDS: ALBUTEROL/IPRATROPIUM (NEB) 3 ML AMP HHN ×5 (01:01→17:39)
[2019-01-20] MEDS: ACCU-CHEK XX (02:00)
[2019-01-20 05:44] LABS: ADD MAN DIFF? NO
[2019-01-20 05:51] LABS: WHITE BLOOD COUNT 4.4 10^3/ul (4.8-10.8)
[2019-01-20 05:51] LABS: ABNORMAL IP MESSAGE 1; BASOPHILS % 0.2 % (0.0-2.0); EOSINOPHILS # 0.1 10^3/ul (0.0-0.5); EOSINOPHILS % 1.4 % (0.0-7.0); HEMATOCRIT 38.7 % (37.0-47.0); HEMOGLOBIN 11.7 g/dl (12.0-16.0); LYMPHOCYTES # 1.4 10^3/ul (0.8-2.9); LYMPHOCYTES % 31.2 % (15.0-51.0); MEAN CORPUSCULAR HEMOGLOBIN 24.9 pg (29.0-33.0); MEAN CORPUSCULAR HGB CONC 30.2 g/dl (32.0-37.0); MEAN CORPUSCULAR VOLUME 82.3 fl (82.0-101.0); MEAN PLATELET VOLUME 12.9 fl (7.4-10.4); MONOCYTE # 0.5 10^3/ul (0.3-0.9); MONOCYTES % 10.6 % (0.0-11.0); NEUTROPHIL # 2.4 10^3/ul (1.6-7.5); NEUTROPHILS % 55.9 % (39.0-77.0); PLATELET COUNT 80 10^3/UL (140-415); RED CELL DISTRIBUTION WIDTH 14.9 % (11.5-14.5)
[2019-01-20 05:57] LABS: POSITIVE DIFF @See below
[2019-01-20 06:09] LABS: ANION GAP 3 (5-13); BLOOD UREA NITROGEN 31 mg/dl (7-20); CALCIUM 8.5 mg/dl (8.4-10.2); CARBON DIOXIDE 37 mmol/L (21-31); CHLORIDE 97 mmol/L (97-110); Estimated GFR > 60 mL/min (>60); GLUCOSE 100 mg/dl (70-220); POTASSIUM 4.3 mmol/L (3.5-5.1); SODIUM 137 mmol/L (135-144)
[2019-01-20] MEDS: LEVOTHYROXINE 25 MCG TAB PO (06:53)
[2019-01-20] MEDS: Insulin NOVOLOG SS MILD Algorithm (SS with meals and bedtime) SC ×3 (07:00→17:22)
[2019-01-20] MEDS: MAGNESIUM OXIDE 400 MG TAB PO (09:32)
[2019-01-20] MEDS: ASPIRIN 81 MG TAB PO (09:32)
[2019-01-20] MEDS: predniSONE 10 MG TAB PO (09:33)
[2019-01-20] MEDS: GABAPENTIN 300 MG CAP PO (09:33)
[2019-01-20] MEDS: GUAIFENESIN LA 600 MG TABSR PO (09:37)
== END 2019-01-20 20:40 | disposition home or self-care (01) | DRG 192 ==
LOC: 2NE 01-16 05:56 → 6WM 17:12
PROVIDERS: Internal Medicine
DX: J44.1 Chronic obstructive pulmonary disease with (acute) exacerbation (principal); E11.42 Type 2 diabetes mellitus with diabetic polyneuropathy; I10 Essential (primary) hypertension; E03.9 Hypothyroidism, unspecified; Z77.22 Contact with and (suspected) exposure to environmental tobacco smoke (acute) (chronic); Z87.19 Personal history of other diseases of the digestive system
CPT/HCPCS: 80048; 80061; 82962; 83036; 83735; 84100; 84439; 84443; 84484; 85025; 94640; 94664; 97110; 97116; 97161; 97530; 99217; G0378